=== PATIENT | male | born 1950 | race Caucasian/White ===

== ENCOUNTER → 2016-08-22 | Outpatient (CLI) | payer OTHER | LOC: MMPC 11:11 | PROVIDERS: ATTEND Internal Medicine | DX: M54.2 Cervicalgia (principal); E78.2 Mixed hyperlipidemia; I10 Essential (primary) hypertension; Z02.89 Encounter for other administrative examinations; Z12.5 Encounter for screening for malignant neoplasm of prostate | CPT/HCPCS: 99214; G0463 ==

== ENCOUNTER → 2016-12-03 | Outpatient (CLI) | payer OTHER | LOC: MMPC 11:11 | PROVIDERS: ATTEND Internal Medicine | DX: M54.2 Cervicalgia (principal) | CPT/HCPCS: 99214; G0463 ==